=== PATIENT | female | born 1980 | race Caucasian/White ===

== ENCOUNTER 2017-11-18 06:17 | Day surgery (SDC) | payer BC ==
[2017-11-18] MEDS ORDERED: FENTAnyl 50 MCG/ML VIAL (10:13)
[2017-11-18] MEDS ORDERED: MIDAZOLAM 1 MG/ML 2 ML INJ ×3 (10:13)
== END 2017-11-18 18:51 | disposition home or self-care (01) ==
LOC: GIL 06:17
DX: K29.50 Unspecified chronic gastritis without bleeding (principal)
CPT/HCPCS: 43239; 84703; 88305; 88312